=== PATIENT | male | born 1990 | race Caucasian/White ===

== ENCOUNTER → 2016-08-22 | Outpatient (CLI) | payer OTHER ==
--- NOTE | 2016-08-22 11:43 | REP ---
Clinical: Renal cyst. Technique: Real time frey scale ultrasound examination using curved array transducer. Findings: The bilateral kidneys are relatively normal in contour, size, echogenicity, and reniform shape without hydronephrosis, nephrolithiasis, or renal mass lesion. Right kidney measures 11.1 x 4.1 x 3.8 cm and includes 1.6 x 1.0 x 1.1 cm simple upper pole cyst. Left kidney measures 11.1 x 4.2 x 5.8 cm without cyst. The bladder is incompletely evaluated due to under distension. Impression: 1.6 cm simple right upper pole renal cyst. Signed by Arcenio Nath MD 08/22/2016 11:34 A
== END ==
LOC: M RAD 10:41
PROVIDERS: ATTEND Internal Medicine Nephrology
DX: N28.1 Cyst of kidney, acquired (principal)

== ENCOUNTER 2016-09-22 16:36 | Emergency (ER) | payer OTHER ==
[~2016-09-22] VITALS: Ht 182.9 cm; Wt 78.2 kg
[2016-09-22 16:36] VITALS: BP 115/72
[2016-09-22] MEDS ORDERED: MOBI15TA PO (16:46)
[2016-09-22] MEDS ORDERED: GABA-283 PO (16:46)
[2016-09-22] MEDS ORDERED: FLUTISP (16:46)
[2016-09-22] MEDS ORDERED: IBUP-1022 PO (17:15)
--- NOTE | 2016-09-23 08:10 | REP ---
REASON: Pain after trauma. PRIORS: None. FINDINGS: The joint spaces are symmetric and relatively well maintained. There is no evidence of acute fracture or destructive osseous lesion. IMPRESSION: Negative. Signed by Juan Krause DO 09/23/2016 09:21 A
== END 2016-09-22 17:20 | disposition home or self-care (01) ==
LOC: M ED 16:36
DX: S93.602A Unspecified sprain of left foot, initial encounter (principal); Z87.891 Personal history of nicotine dependence; W19.XXXA Unspecified fall, initial encounter; Y92.099 Unspecified place in other non-institutional residence as the place of occurrence of the external cause; Y93.89 Activity, other specified; Y99.9 Unspecified external cause status

== ENCOUNTER → 2016-11-14 | Outpatient (REF) | payer OTHER ==
[~2016-11-14] MED LIST: FLUTISP; GABA-283 PO; IBUP-1022 PO; MOBI15TA PO
== END ==
LOC: M LABDRAW1 09:22
PROVIDERS: ATTEND Physical Medicine & Rehabilitation
DX: Z01.818 Encounter for other preprocedural examination (principal)